=== PATIENT | female | born 1965 ===

== ENCOUNTER 2024-06-12 15:26 | Emergency (ER) | payer SELFPAY ==
[2024-06-12 15:29] VITALS: BP 184/85; PULSE 68; RESP 16; TEMP 36.6; O2SAT 99
--- NOTE | 2024-06-12 15:37 | ED.NEUROSD ---
HPI - Neuro Symptoms/Deficit General Chief Complaint: Neuro Symptoms/Deficit Stated Complaint: I think I woke up with Perry Palsy Time Seen by Provider: 06/12/24 15:33 Source: patient Mode of arrival: ambulatory Limitations: no limitations History of Present Illness HPI Narrative: Patient presents to the emergency department with concern that she has Cardoso's palsy. She woke up this morning with right-sided facial drooping. 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 She does not appreciate that she had an increased sensitivity to sound as a doctor for playing just before she came to the emergency department and they were barking sound very intense. She denies any muscle twitching or retroauricular pain. She is having some slight paresthesias inferior to her right eye as well as at her right chin. She has had a few more days of taste changes but had attributed this to her generalized congestion as she has felt like she has been having a chest cold and cough since . She denies any vision changes. Her right ear aches but she denies any tinnitus or hearing loss. She recently moved to the area from [place] and has been here job hunting. She was concerned because she has a history of smoking currently 1 pack per day. Related Data Allergies Allergy/AdvReac Type Severity Reaction Status Date / Time No Known Drug Allergies Allergy Unknown none Verified 06/12/24 16:28 [facility] Past Medical History Medical History Cardoso's palsy Social History Social History Social History: Has dogs Smoking packs per day: 1 Smoking cigarettes per day: 20.0 Smoking status: Current every day smoker Additional living arrangements comments: Recently moved from [place] Occupation/Education: unemployed Additional occupation/education comments: searching for work Exam Narrative: GENERAL: Well-appearing, well-nourished, and in no acute distress. HEAD: Normocephalic, atraumatic. EYES: Non injected, non icteric. Pupils grossly normal. ENT: Nares clear, no rhinorrhea or epistaxis. Tympanic membranes bilaterally easily visualized without effusion or bulging. No erythema or vesicles in external auditory canal. No drainage. NECK: Supple. CHEST: Speaking in full sentences. No respiratory distress. HEART: Regular rate and rhythm. . ABDOMEN: Soft, nondistended. EXTREMITIES: Normal range of motion. No lower extremity edema. Moves all extremities x4. SKIN: Warm, dry, no rash. NEURO: Alert and oriented x3. Speaks clearly without aphasia or dysarthria. No abnormal movements appreciated. Right-sided facial palsy including of the forehead which does not wrinkle/brow does not furrow (i.e. not spared). Sluggish blinking on the right. PSYCH: Normal mood and affect. Course Vital Signs Vital signs: Vital Signs Temperature 97.8 F 06/12/24 15:29 Pulse Rate 68 06/12/24 15:29 Respiratory Rate 16 06/12/24 15:29 Blood Pressure 184/85 H 06/12/24 15:29 Pulse Oximetry 99 06/12/24 15:29 Temperature 97.8 F 06/12/24 15:29 Pulse Rate 68 06/12/24 15:29 Respiratory Rate 16 06/12/24 15:29 Blood Pressure 184/85 H 06/12/24 15:29 Pulse Oximetry 99 06/12/24 15:29 MDM - Neuro Symptoms/Deficit MDM Narrative Medical decision making narrative: Patient presents complaint of right-sided facial droop that she noticed upon awakening this morning. In the emergency department she is afebrile vital signs notable for hypertension. Patient is concerned that she has Cardoso's palsy and her physical exam does support this given location of symptoms and fact that the forehead is not spared. No vision changes. Smoking Cessation: Currently smokes: 1 PPD. The patient was counseled that smoking tobacco has been short long-term negative health effects and the patient should attempt to stop smoking as 1 of the most important things they can do to improve her health now and in the future. Patient is given artificial tears, 1st dose of prednisone, and 1st dose of antiviral in the emergency department with the rest of the course prescribed. Advised on the eye protection and follow-up with senior insight manager international/blow pit operator. Discharged home in stable condition. Differential Diagnosis Differential diagnosis: Likely other (Cardoso's palsy, CVA; moreno purdy, ear infection; acute viral syndrome; considered Lyme disease but less likely) Lab Data Attestation: I reviewed the patient's lab results. Lab results narrative: Viral panel negative Labs: Lab Results 06/12/24 Range/Units 16:09 Influenza A (RT-PCR) Negative (Negative) Influenza B (RT-PCR) Negative (Negative) RSV (RT-PCR) Negative (Negative) SARS-CoV-2 RNA (RT-PCR) Negative (Negative) Discharge Plan Discharge Clinical Impression: Right-sided Cardoso's palsy, Nicotine dependence Patient Disposition: Home, Self-Care Condition: Stable Instructions: Antibiotic Form, How to Stop Smoking (ED), Cardoso Palsy (ED) Additional Instructions: For eye protection, use artificial tears every hour while awake. Apply ophthalmic ointment at night and tape your eye shut using skin tape. Follow up with ophthalmology for monitoring of the affected cornea. You received your 1st dose of steroid today. Continue the rest of the course. You tested negative for COVID, influenza a, influenza B, and RSV. Return to the emergency department with any new or worsening symptoms. Patient Language: Congolese Prescriptions: New artificial tears(hypromellose) 0.3 % drops 1 drp RIGHT EYE .hourly PRN (Reason: cornea protection) Qty: 30 0RF artificial tears with lanolin Ointment 1 applic RIGHT EYE HS PRN (Reason: cornea protection) Qty: 3.5 0RF prednisone 20 mg tablet 60 mg PO DAILY 6 Days Qty: 18 0RF Rx Instructions: Start 06/13/24, take before 9:00 a.m. when possible valacyclovir [Valtrex] 1 gram tablet 1,000 mg PO TID 7 Days Qty: 20 0RF Rx Instructions: received first dose in ED 06/12/24 Follow-up/Referrals: [facility] [place] [Outside] Janae,Octavio Bustamante MD [Non-Staff] - Stand Alone Forms: Work/School Release IP Time of Disposition: 16:59
[2024-06-12] MEDS: predniSONE 20 MG TABLET 60 MG PO (16:05)
[2024-06-12] MEDS: valACYclovir HCL 500 MG TABLET 1000 MG PO (16:06)
[2024-06-12] MEDS: ARTIFICIAL TEARS OPHTH SOLN 15 ML BOTTLE 1 DROP RIGHT EYE (16:07)
[2024-06-12 16:56] LABS: Influenza A QL RT-PCR Negative (Negative); Influenza B QL RT-PCR Negative (Negative); RSV RNA, RT-PCR Negative (Negative); SARS-CoV-2 RNA PCR Negative (Negative)
--- OUTSIDE RECORDS SUMMARY | 2024-06-19 13:53 | XMS_ITS | Clinical Summary ---
Author Organization [facility] Address [address] [place] [id number] Phone [email or web address] [email or web address] Care Team Providers Care Woodwind Instruments Inspector Name Role Phone Unavailable Primary Care Provider Unavailabl e Encounters Date Type Department Care Team Description 05/21/2024 Claims Summary [facility] [address] [place] [address] Provider, Claims Summary MD Lisa 04/24/2024 Claims Summary [facility] [address] [place] [address] Provider, Claims Summary MD Lisa 03/21/2024 Claims Summary [facility] [address] [place] [address] Provider, Claims Summary MD Lisa from Last 3 Months Social History Tobacco Use Types Packs/Day Years Used Date Smoking Tobacco: Never Assessed Stress Answer Date Recorded Stress in your Life Not on file 04/21/2024 Dealing with Stress 3 04/21/2024 Comments Unknown Sex and Gender Information Value Date Recorded Sex Assigned at Not on file Legal Sex Female 12:27 AM CDT Gender Identity Not on file Sexual Orientation Not on file Plan of Treatment Not on file
--- OUTSIDE RECORDS SUMMARY | 2024-06-19 13:53 | XMS_ITS | Encounter Summary ---
Author Organization [facility] Address [address] [place] [phone] Phone [email or web address] [email or web address] Care Team Providers Care Neurourologist Name Role Phone Unavailable Primary Care Provider Unavailabl e Encounter Details Date Type Department Care Team (Late st Contact Info) Description 05/21/2024 Claims Summary [facility] [address] [place] [address] Provider, Claims Summary External, [address] [place] [address] Social History Tobacco Use Types Packs/Day Years Used Date Smoking Tobacco: Never Assessed Stress Answer Date Recorded Stress in your Life Not on file 04/21/2024 Dealing with Stress 3 04/21/2024 Comments Unknown Sex and Gender Information Value Date Recorded Sex Assigned at Not on file Legal Sex Female 12:27 AM CDT Gender Identity Not on file Sexual Orientation Not on file documented as of this encounter Plan of Treatment Not on file documented as of this encounter Visit Diagnoses Not on filedocumented in this encounter
--- OUTSIDE RECORDS SUMMARY | 2024-06-19 13:53 | XMS_ITS | Encounter Summary ---
Author Organization [facility] Address [address] [place] [phone] Phone CareEverywhereSuppor [email or web address] Care Team Providers Care Pizza Baker Name Role Phone Unavailable Primary Care Provider Unavailabl e Encounter Details Date Type Department Care Team (Late st Contact Info) Description 04/24/2024 Claims Summary [facility] [address] [place] [address] Provider, Claims Summary External, [address] [place] [id number] Social History Tobacco Use Types Packs/Day [...]
--- OUTSIDE RECORDS SUMMARY | 2024-06-19 13:53 | XMS_ITS | Encounter Summary ---
Author Organization [facility] Address [address] [place] [address] Phone CareEverywhereSuppor [email or web address] Care Team Providers Care Networking Technician Name Role Phone Unavailable Primary Care Provider Unavailabl e Encounter Details Date Type Department Care Team (Late st Contact Info) Description 03/21/2024 Claims Summary [facility] [address] [place] [address] Provider, Claims Summary External, [address] [place] [address] Social History Tobacco Use Types Packs/Day Years Used Date Smoking Tobacco: Never Assessed Comments Unknown Sex and Gender Information Value Date Recorded Sex Assigned at Not on file Legal Sex Female 12:27 AM CDT Gender Identity Not on file Sexual Orientation Not on file documented as of this encounter Plan of Treatment Not on file documented as of this encounter Visit Diagnoses Not on filedocumented in this encounter
--- OUTSIDE RECORDS SUMMARY | 2024-06-19 13:53 | XMS_ITS | Encounter Summary ---
Author Organization [facility] Address [address] [place] [phone] Phone CareEverywhereSuppor [email or web address] Care Team Providers Care Jackerman Name Role Phone Unavailable Primary Care Provider Unavailabl e Encounter Details Date Type Department Care Team (Late st Contact Info) Description 02/21/2024 Claims Summary [facility] [address] [place] [address] Provider, Claims Summary External, [address] [place] [id number] Social History Tobacco Use Types Packs/Day [...]
--- OUTSIDE RECORDS SUMMARY | 2024-06-19 13:54 | XMS_ITS | Continuity of Care Document ---
[facility] Address [address] [place] [id number] Phone Care Team Providers Care Joy Loader Name Role Phone Chino Shanks MD Unavailable Unavailable Allergies, Adverse Reactions, Alerts Substance Reaction Status Criticality No Known Allergies Active No Inform ation Medications Medication Instructions Dosage Effective Dates (start - stop) Status Comments Jantoven 1 mg tablet TAKE 1/2 TABLET BY MOUTH EVERY DAY AT BEDTIME - Active Jantoven 4 mg tablet TAKE 1 TABLET BY MO UTH EVERY NIGHT AT BEDTIME WITH HALF OF 1MG TO EQUAL 4.5MG - Active Procedures Procedure Date PROTHROMBIN TIME CAPILLARY BLOOD DRAW PROTHROMBIN TIME OFFICE/OUTPATIENT VISIT, EST PROTHROMBIN TIME CAPILLARY BLOOD DRAW PROTHROMBIN TIME CAPILLARY BLOOD DRAW PROTHROMBIN TIME CAPILLARY BLOOD DRAW PROTHROMBIN TIME CAPILLARY BLOOD DRAW EXTREMITY STUDY PROTHROMBIN TIME CAPILLARY BLOOD DRAW PROTHROMBIN TIME OFFICE/OUTPATIENT VISIT, EST PROTHROMBIN TIME ECHO 2D W/DOPPLER PROTHROMBIN TIME CAPILLARY BLOOD DRAW PROTHROMBIN TIME CAPILLARY BLOOD DRAW ELECTROCARDIOGRAM, COMPLETE OFFICE/OUTPATIENT VISIT, NEW Advance Directives Directive Yes / No Effective Date File Name No Information Encounters Encounter Description Practice Location Reason(s) For Visit Diagnoses Date Provider Providers Copied on Encounter [facility] [employer] [facility], [address] [place] [address], [id number] , [phone] [facility] Location No Information 3 Dimitris Magana. [address] [place] [address], [id number] , [place]. tel:[phone] [facility] [employer] [facility], [address] [place] [address], [id number] , [phone] [facility] Encounter for therapeutic drug level monitoringLong term (current) use of anticoagulantsPerson al history of other venous thrombosis and embolism 3 Dimitris Magana. [address] [place] [address], [id number] , . tel:[phone] Referring Provider: Chino Uriarte, [address] [place] [address], [id number] . tel:[phone] [facility] [employer] [facility], [address] [place] [address], [id number] , tel:[phone] [facility] Encounter for therapeutic drug level monitoringLong term (current) use of anticoagulantsPerson al history of other venous thrombosis and embolism 3 Dimitris Magana. [address] [place] [address], [id number] , . tel:[phone] OFFICE/OUTPA TIENT VISIT, EST [facility] [employer] [facility], [address] [place] [address], [id number] , tel:[phone] [facility] Follow up (chief complaint) Personal history of other venous thrombosis and embolismTobacco useLong term (current) use of anticoagulants 3 Chas Cesar. [address] [place] [address], [id number] , . [phone] Referring Provider: Tali Doherty, [address] [place] [address], [id number] . tel:[phone] [facility] [employer] [facility], [address] [place] [address], [id number] , tel:[phone] [facility] Encounter for therapeutic drug level monitoringLong term (current) use of anticoagulantsPerson al history of other venous thrombosis and embolism May-0 2- 3 Dimitris Magana. [address] [place] [address], [id number] , . tel:[phone] Referring Provider: Chino Uriarte, [address] [place] [address], [id number] . tel:[phone] [facility] [employer] [facility], [address] [place] [address], [id number] , tel:[phone] [facility] Encounter for therapeutic drug level monitoringLong term (current) use of anticoagulantsPerson al history of other venous thrombosis and embolism Apr-1 7 3 Dimitris Magana. [address] [place] [address], [id number] , . tel:[phone] Referring Provider: Chino Uriarte, [address] [place] [address], [id number] . tel:[phone] [facility] [employer] [facility], [address] [place] [address], [id number] , tel:[phone] [facility] Encounter for therapeutic drug level monitoringLong term (current) use of anticoagulantsPerson al history of other venous thrombosis and embolism Apr-0 3 Dimitris Magana. [address] [place] [address], [id number] , . tel:[phone] Referring Provider: Chino Uriarte, [address] [place] [address], [id number] . tel:[phone] [facility] [employer] [facility], [address] [place] [address], [id number] , tel:[phone] [facility] Encounter for therapeutic drug level monitoringLong term (current) use of anticoagulantsPerson al history of other venous thrombosis and embolism Mar-2 0- 3 Dimitris Magana. [address] [place] [address], [id number] , [place]. tel:[phone] Referring Provider: Chino Uriarte, [address] [place] [address], [address] . tel:[phone] [facility] , [facility], [address] [place] [address], [id number] , [place] tel: [phone] [facility] No Information 3 Марина Hillman. [address] [place] [address], [id number] , [place]. tel:[phone] Referring Provider: Tali Doherty, [address] [place] [address], [id number] . tel:[phone] [facility] , [facility], [address] [place] [address], [id number] , [place] tel: [phone] [facility] Encounter for therapeutic drug level monitoringLong term (current) use of anticoagulantsPerson al history of other venous thrombosis and embolism 3 Dimitris Magana. [address] [place] [address], [id number] , [place]. tel: [phone] Referring Provider: Chino Uriarte, [address] [place] [address], [id number] . tel:[phone] [facility] [employer] [facility], [address] [place] [address], [id number] , [place] tel: [phone] [facility] Encounter for therapeutic drug level monitoringLong term (current) use of anticoagulantsPerson al history of other venous thrombosis and embolism 3 Diimtris Magana. [address] [place] [address], [id number] , [place]. tel: [phone] OFFICE/OUTPA TIENT VISIT, EST [facility] [employer] [facility], [address] [place] [address], [id number] , [place] tel: [phone] [facility] Follow up (chief complaint) lobsterman (current) use of anticoagulantsPerson al history of other venous thrombosis and embolismTobacco use 3 Chas Cesar. [address] [place] [address], [id number] , [place]. tel:[phone] Referring Provider: Chino Uriarte, [address] [place] [address], [id number] . tel:[phone] [facility], [address] [place] [address], [id number] , tel: [phone] [facility] Encounter for therapeutic drug level monitoringLong term (current) use of anticoagulantsAcute embolism and thrombosis of left femoral vein 3 Dimitris Magana. [address] [place] [address], [id number] , [place]. tel: [phone] Referring Provider: Chino Uriarte, [address] [place] [address], [id number] . tel:[phone] [facility], [address] [place] [address], [id number] , tel: [phone] [facility] No Information 3 Dimitris Magana. [address] [place] [address], [id number] , [place]. tel:[phone] Referring Provider: Chino Uriarte, [address] [place] [address], [id number] . tel:[phone] [facility], [address] [place] [address], [id number] , tel: [phone] [facility] Encounter for therapeutic drug level monitoringLong term (current) use of anticoagulantsAcute embolism and thrombosis of left femoral vein 3 Dimitris Magana. [address] [place] [address], [id number] , [place]. tel:[phone] Referring Provider: Chino Uriarte, [address] [place] [address], [id number] . tel:[phone] [facility], [address] [place] [address], [id number] , tel:[phone] [facility] Encounter for therapeutic drug level monitoringLong term (current) use of anticoagulantsAcute embolism and thrombosis of left femoral vein 3 Dimitris Magana. [address] [place] [address], [id number] , . tel:[phone] Referring Provider: Chino Uriarte, [address] [place] [address], [id number] . tel:[phone] OFFICE/OUTPA TIENT VISIT, [facility] , [facility], [address] [place] [address], [id number] , [place] [phone] [facility] Problem Visit - New (chief complaint) Chest pain, unspecifiedAcute embolism and thrombosis of left femoral veinLong term (current) use of anticoagulantsTobacc o use 3 Dimitris Magana. [address] [place] [address], [id number] , [place]. [phone] Referring Provider: Norberto Sorenson, [address] [place] [address], [place], [address]. tel:[phone] Family History Family Member Type Diagnosis Age At Onset Mother Problem mitral valve issues Father Problem Cancer, unknown type (Cause Of ) Payers Payer name Insurance type Covered republican ID Authoresteban harper(s) [employer] CI [id number] Social History Type Description Quantity Date Captured Comments Sex Female Smoking Status No Information Sexual Orientation Straight or heterosexual Gender Identity Female Chief Complaint And Reason For Visit No Information Reason For Referral Reason For Referral No Information Plan Of Treatment Date Type Action Status Goal Lifestyle education regardin g diet completed Goal Lifestyle education regardin g diet completed Goal Lifestyle education regardin g diet completed Referral Ordered: Ghanshaym Marin -Vascular Surgery (related to Tobacco use) ordered Referral Referred To: Ghanshyam Marin [address] [place], [address] Ordered: Referrals: Vascular Surgery. Ghanshyam Marin. Consult Appointment date/timeframe: 1 Month ordered History Of Present Illness Encounter Date Complaint History Of Prese nt Illness Follow up 57-year-old fema le patient of Dr. Chino Shanks with a history of DVT on anticoagulation and tobacco use who presents to the nurse practitioner clinic for follow-up.In August the patient underwent repeat venous duplex to see if her DVT had resolved. This indicated acute DVT noted from the left CFV to the mid FV which is consistent with her previous study from April 2022. She was advised to continue anticoagulation.Patient reports symptomatically she feels she has done fairly well since her last visit. She has returned to work full-time. She does continue to have some swelling in her left leg and has noted this to be somewhat worse over the last several weeks.Patient denies any exertional chest pain or pressure, shortness of breath, dizziness, lightheadedness, PND, orthopnea, syncope or presyncope. Follow up 57-year-old fema le patient of Dr. Chino Shanks with a history of DVT on anticoagulation and tobacco use who presents to the nurse practitioner clinic to follow-up after testing.At last visit patient was referred for an echocardiogram and transition from Eliquis to Coumadin due to cost.Her echocardiogram indicates an ejection fraction of 62% with normal left and right ventricular chamber size and systolic function. Mild MR and TR were noted with an RVSP of 33 mmHg.Patient report symptomatically she has done well since her last visit. She reports swelling in her leg has significantly improved and is only minimally evident at this point. No evidence of erythema or inflammation.Patient denies any exertional chest pain or pressure, shortness of breath, dizziness, lightheadedness, PND, orthopnea, or edema. No syncope or presyncope has been noted.She does continue to smoke cigarettes. Problem Visit - New Ms. Fabio blakely s a 56-year-old female with a history of cigarette use who presents for evaluation of left lower extremity DVT. The patient developed acute onset of pain and swelling in her left leg in April. She was seen by Dr. Dobbs. A ultrasound was obtained demonstrating extensive left lower extremity DVT in the left common femoral vein down to the calf veins. There is also some thrombosis in the greater saphenous vein on the left. She was started on Eliquis. She has had significant improvement in pain and edema. She still reports occasional discomfort as well as some very mild edema. She has tolerated Eliquis without difficulty although cost has been problematic. At the time this develop she had been very inactive. She had been diagnosed with EBV and has had profound fatigue and lack of energy symptoms associated with this. She was also having difficulty with shortness of breath at the time. This has also significantly improved. At this point she is doing fairly well symptomatically.There is no prior history of DVT. She has no prior history of hypercoagulable state. She has not had any recent travel. No trauma was noted. There is no family history of clotting disorder.There is no history of myocardial infarction or angina. There is no history of murmur or rheumatic fever. There is no history of hypertension, diabetes or hyperlipidemia. She does have a history of ongoing cigarette use. There is no family history of premature coronary artery disease. Functional Status Date Functional Assessmen t No Information Instructions Date Instruction Additional Infor davi Lifestyle education regarding di et Related to Dietary counseling and surveillance Lifestyle education regarding di et Related to Dietary counseling and surveillance Lifestyle education regarding di et Related to Dietary counseling and surveillance Assessments Type Assessment Date No Information Patient Care Teams Name Effective Dates (start - stop) Status Members No Information
--- OUTSIDE RECORDS SUMMARY | 2024-06-19 14:14 | XMS_ITS | Encounter Summary ---
Author Organization [facility] Address [address] [place] [address] Phone [email or web address] [email or web address] Care Team Providers Care Skip Tender Name Role Phone Unavailable Primary Care Provider Unavailabl e Encounter Details Date Type Department Care Team (Late st Contact Info) Description 04/24/2024 Claims Summary [facility] [address] [place] [address] Provider, Claims Summary External, [address] [place] [address] Social History Tobacco Use Types Packs/Day [...]
--- OUTSIDE RECORDS SUMMARY | 2024-06-19 14:14 | XMS_ITS | Encounter Summary ---
Author Organization [facility] Address [address] [place] [address] Phone [email or web address] [email or web address] Care Team Providers Care Senior Credit Officer Name Role Phone Unavailable Primary Care Provider Unavailabl e Encounter Details Date Type Department Care Team (Late st Contact Info) Description 02/21/2024 Claims Summary [facility] [address] [place] [address] Provider, Claims Summary External, [address] [place] [address] Social History Tobacco Use Types Packs/Day [...]
--- OUTSIDE RECORDS SUMMARY | 2024-06-19 14:14 | XMS_ITS | Encounter Summary ---
Author Organization [facility] Address [address] [place] [address] Phone [email or web address] [email or web address] Care Team Providers Care Lab Clerk Name Role Phone Unavailable Primary Care Provider Unavailabl e Encounter Details Date Type Department Care Team (Late st Contact Info) Description 05/21/2024 Claims Summary [facility] [address] [place] [address] Provider, Claims Summary External, [address] [place] [address] Social History Tobacco Use Types Packs/Day [...]
--- OUTSIDE RECORDS SUMMARY | 2024-06-19 14:14 | XMS_ITS | Clinical Summary ---
Author Organization [facility] Address [address] [place] [address] Phone [email or web address] [email or web address] Care Team Providers Care Digital Ad Trafficker Name Role Phone Unavailable Primary Care Provider Unavailabl e Encounters Date Type Department Care Team Description 05/21/2024 Claims Summary [facility] [address] [place] [address] Provider, Claims Summary MD Lisa 04/24/2024 Claims Summary [facility] [address] [place] [address] Provider, Claims Summary MD Lisa 03/21/2024 Claims Summary [facility] [address] [place] [address] Provider, Claims Summary MD Lisa from Last [...]
--- OUTSIDE RECORDS SUMMARY | 2024-06-19 14:14 | XMS_ITS | Continuity of Care Document ---
Author Organization [facility] Address [address] [place] [id number] Phone Care Team Providers Care Inside Sales Advertising Executive Name Role Phone Chino Shanks MD Unavailable Unavailable Allergies, Adverse Reactions, Alerts Substance Reaction Status Criticality No Known Allergies Active No Inform ation Medications Medication Instructions Dosage Effective Dates (start - stop) Status Comments Jantoven 4 mg tablet TAKE 1 TABLET BY MO UTH EVERY NIGHT AT BEDTIME WITH HALF OF 1MG TO EQUAL 4.5MG - Active Jantoven 1 mg tablet TAKE 1/2 TABLET BY MOUTH EVERY DAY AT BEDTIME - Active Procedures Procedure Date PROTHROMBIN TIME [...] Diagnoses Date Provider Providers Copied on Encounter [facility] [employer] [facility], [address] [place] [address], [id number] , tel:[phone] [facility] Location No Information 3 Dimitris Magana. [address] [place] [address], [id number] , [place]. [phone] [facility] [employer] [facility], [address] [place] [address], [id number] , [phone] [facility] Encounter for therapeutic drug level monitoringLong term (current) use of anticoagulantsPerson al history of other venous thrombosis and embolism 3 Dimitris Magana. [address] [place] [address], [id number] , . tel:[phone] Referring Provider: Chino Uriarte, [address] [place] [address], [id number] . tel:[phone] [facility] [employer] [facility], [address] [place] [address], [id number] , tel:[phone] [facility] Encounter for therapeutic drug level monitoringLong term (current) use of anticoagulantsPerson al history of other venous thrombosis and embolism 3 Dimitris Magana. [address] [place] [address], [id number] , . tel:[phone] OFFICE/OUTPA TIENT VISIT, EST [facility] [employer] [facility], [address] [place] [address], [id number] , tel:[phone] [facility] Follow up (chief complaint) Personal history of other venous thrombosis and embolismTobacco useLong term (current) use of anticoagulants 3 Chas Cesar. [address] [place] [address], [id number] , . [phone] Referring Provider: Tali Doherty, [address] [place] [address], [id number] . tel:[phone] [facility] [employer] [facility], [address] [place] [address], [id number] , tel:[phone] [facility] Encounter for therapeutic drug level monitoringLong term (current) use of anticoagulantsPerson al history of other venous thrombosis and embolism May-0 2- 3 Dimitris Magana. [address] [place] [address], [id number] , . tel:[phone] Referring Provider: Chino Uriarte, [address] [place] [address], [id number] . tel:[phone] [facility] [employer] [facility], [address] [place] [address], [id number] , tel:[phone] [facility] Encounter for therapeutic drug level monitoringLong term (current) use of anticoagulantsPerson al history of other venous thrombosis and embolism Apr-1 7 3 Dimitris Magana. [address] [place] [address], [id number] , . tel:[phone] Referring Provider: Chino Uriarte, [address] [place] [address], [id number] . tel:[phone] [facility] [employer] [facility], [address] [place] [address], [id number] , tel:[phone] [facility] Encounter for therapeutic drug level monitoringLong term (current) use of anticoagulantsPerson al history of other venous thrombosis and embolism Apr-0 3 Dimitris Magana. [address] [place] [address], [id number] , . tel:[phone] Referring Provider: Chino Uriarte, [address] [place] [address], [id number] . tel:[phone] [facility] [employer] [facility], [address] [place] [address], [id number] , tel:[phone] [facility] Encounter for therapeutic drug level monitoringLong term (current) use of anticoagulantsPerson al history of other venous thrombosis and embolism Mar-2 0- 3 Dimitris Magana. [address] [place] [address], [id number] , [place]. tel:[phone] Referring Provider: Chino Uriarte, [address] [place] [address], [id number] . tel:[phone] [facility] , [facility], [address] [place] [address], [id number] , [place] tel: [phone] [facility] No Information 3 Марина Hillman. [address] [place] [address], [id number] , [place]. tel:[phone] Referring Provider: Tali Doherty, [address] [place] [address], [id number] . tel:[phone] [facility] , [facility], [address] [place] [address], [id number] , [place] tel: [phone] [facility] Encounter for therapeutic drug level monitoringLong term (current) use of anticoagulantsPerson al history of other venous thrombosis and embolism 3 Dimitris Magana. [address] [place] [address], [id number] , [place]. tel: [phone] Referring Provider: Chino Uriarte, [address] [place] [address], [id number] . tel:[phone] [facility] [employer] [facility], [address] [place] [address], [id number] , [place] tel: [phone] [facility] Encounter for therapeutic drug level monitoringLong term (current) use of anticoagulantsPerson al history of other venous thrombosis and embolism 3 Dimitris Magana. [address] [place] [address], [id number] , [place]. tel: [phone] OFFICE/OUTPA TIENT VISIT, EST [facility] [employer] [facility], [address] [place] [address], [id number] , [place] tel: [phone] [facility] Follow up (chief complaint) parts counterman (current) use of anticoagulantsPerson al history of other venous thrombosis and embolismTobacco use 3 Chas Cesar. [address] [place] [address], [id number] , [place]. tel:[phone] Referring Provider: Chino Uriarte, [address] [place] [address], [id number] . tel:[phone] [facility], [address] [place] [address], [id number] , tel: [phone] [facility] Encounter for therapeutic drug level monitoringLong term (current) use of anticoagulantsAcute embolism and thrombosis of left femoral vein 3 Dimitris Magana. [address] [place] [address], [id number] , [place]. tel: [phone] Referring Provider: Chino Uriarte, [address] [place] [address], [id number] . tel:[phone] [facility], [address] [place] [address], [id number] , tel: [phone] [facility] No Information 3 Dimitris Magana. [address] [place] [address], [id number] , [place]. tel:[phone] Referring Provider: Chino Uriarte, [address] [place] [address], [id number] . tel:[phone] [facility], [address] [place] [address], [id number] , tel: [phone] [facility] Encounter for therapeutic drug level monitoringLong term (current) use of anticoagulantsAcute embolism and thrombosis of left femoral vein 3 Dimitris Magana. [address] [place] [address], [id number] , [place]. tel:[phone] Referring Provider: Chino Uriarte, [address] [place] [address], [id number] . tel:[phone] [facility], [address] [place] [address], [id number] , tel:[phone] [facility] Encounter for therapeutic drug level monitoringLong term (current) use of anticoagulantsAcute embolism and thrombosis of left femoral vein 3 Dimitris Magana. [address] [place] [address], [id number] , . tel:[phone] Referring Provider: Chino Uriarte, [address] [place] [address], [id number] . tel:[phone] OFFICE/OUTPA TIENT VISIT, [facility] , [facility], [address] [place] [address], [id number] , [place] [phone] [facility] Problem Visit - New (chief complaint) Chest pain, unspecifiedAcute embolism and thrombosis of left femoral veinLong term (current) use of anticoagulantsTobacc o use 3 Dimitris Magana. [address] [place] [address], [id number] , [place]. [phone] Referring Provider: Norberto Sorenson, [address] [place] [address], [place], [address]. tel:[phone] Family History Family Member Type Diagnosis Age At Onset Mother Problem mitral valve issues Father Problem Cancer, unknown type (Cause Of ) Payers Payer name Insurance type Covered libertarian ID Authoresteban harper(s) [employer] CI [id number] Social History Type Description Quantity Date Captured [...] education regardin g diet completed Referral Ordered: Ghanshyam Marin -Vascular Surgery (related to Tobacco use) ordered Referral Referred To: Ghanshyam Marin [address] [place], [address] Ordered: Referrals: Vascular Surgery. Ghanshyam Marin. Consult [...]
--- OUTSIDE RECORDS SUMMARY | 2024-06-19 14:14 | XMS_ITS | Encounter Summary ---
Author Organization [facility] Address [address] [place] [address] Phone [email or web address] Care Team Providers Care Penology Teacher Name Role Phone Unavailable Primary Care Provider Unavailabl e Encounter Details Date Type Department Care Team (Late st Contact Info) Description 03/21/2024 Claims Summary [facility] [address] [place] [address] Provider, Claims Summary External, [address] [place] [id number] Social History Tobacco Use Types Packs/Day [...]
== END 2024-06-12 17:00 | disposition home or self-care (01) ==
PROVIDERS: Emergency Provider Student in an Organized Health Care Education/Training Program
DX: G51.0 Bell's palsy (principal); F17.210 Nicotine dependence, cigarettes, uncomplicated; Z20.822 Contact with and (suspected) exposure to COVID-19
CPT/HCPCS: 87637; 99283; A9270; J7512